=== PATIENT | male | born 1965 | race Caucasian/White ===

== ENCOUNTER 2020-07-13 11:02 | Outpatient (REF) | payer OTHER, SELFPAY ==
[2020-07-13 11:06] LABS: MANUAL DIFF FLAG NO
[2020-07-13 11:21] LABS: Basophils Percent Auto 0.4 % (0-2); Eosinophils Absolute Auto 0.1 X10*3/uL (0.0-0.4); Eosinophils Percent Auto 1.6 % (0-4); Hematocrit 41.6 % (42-52); Hemoglobin 14.2 g/dl (14.0-18.0); Imm Gran Abs Auto 0.02 X10*3/uL (0.00-0.03); Imm Gran Pct Auto 0.4 % (0.0-0.4); Lymphocytes Absolute Auto 1.6 X10*3/uL (1.2-4.9); Lymphocytes Percent Auto 31.8 % (20-40); Mean Corpuscular HGB Conc 34.1 g/dl (31.0-36.0); Mean Corpuscular Hemoglobin 31.3 pg (27.0-33.0); Mean Corpuscular Volume 91.8 fL (80-98); Mean Platelet Volume 9.7 fL (9.4-12.4); Monocytes Absolute Auto 0.5 X10*3/uL (0.1-1.2); Monocytes Percent Auto 9.9 % (2-11); Neutrophils Absolute Auto 2.7 X10*3/uL (2.0-8.3); Neutrophils Percent Auto 55.9 % (45-73); Platelet Count 292 X10*3/uL (160-400); Red Blood Count 4.53 X10*6/uL (4.60-5.80); Red Cell Distribution Width 12.5 % (11.0-16.0); White Blood Count 4.9 X10*3/uL (4.8-10.8)
[2020-07-13 11:37] LABS: Estimated Average Glucose 117 mg/dL; Hemoglobin A1c % 5.7 %
[2020-07-13 11:41] LABS: Glucose Urine UA NEG (NEG); Leukocyte Esterase Urine NEG (NEG); Nitrite Urine NEG (NEG); Specific Gravity - Urine 1.025 (1.005-1.025); Urine Blood NEG (NEG); Urine Ketones NEG (NEG); Urine Protein NEG (NEG-TRACE)
[2020-07-13 11:46] LABS: Appearance Urine CLEAR; Color Urine YELLOW
[2020-07-13 12:18] LABS: Alanine Aminotransferase 22 U/L (0-40); Albumin Level 4.4 g/dL (3.5-5.0); Alkaline Phosphatase 60 U/L (39-117); Anion Gap 14 (12-20); Aspartate Amino Transferase 18 U/L (5-37); Bilirubin Total 0.6 mg/dL (0.0-1.0); Blood Urea Nitrogen 14 mg/dL (9-16); Calcium 9.3 mg/dL (8.4-10.2); Carbon Dioxide 20 mmol/L (22-29); Chloride 107 mmol/L (96-108); Cholesterol 225 mg/dL; Estimated Glomerular Filt Rate > 60; Glucose Fasting 118 mg/dL (60-99); HDL Cholesterol 36 mg/dL; LDL Cholesterol Calculated 157 mg/dl; Potassium 4.4 mmol/L (3.3-5.1); Sodium 137 mmol/L (135-145); Total Protein 7.2 g/dL (6.5-8.0); Triglycerides 162 mg/dL
[2020-07-13 12:21] LABS: Creatinine Urine 167.08 mg/dL; Microalbum/Creatinine Ratio Ur 5.9 ug/mg cr
[2020-07-13 12:27] LABS: Reflex LDLD? No
[2020-07-13 12:38] LABS: PSA,Total (Free>4and<10) 1.26 ng/mL (0.00-4.00)
== END 2020-07-13 11:03 | disposition home or self-care (01) ==
LOC: HO.LNP 11:02
PROVIDERS: Visit Provider Internal Medicine
DX: Z00.00 Encounter for general adult medical examination without abnormal findings (principal); Z12.5 Encounter for screening for malignant neoplasm of prostate; R73.03 Prediabetes; E78.00 Pure hypercholesterolemia, unspecified
CPT/HCPCS: 80053; 80061; 81003; 82043; 83036; 84153; 85025

== ENCOUNTER 2021-02-28 10:20 | Outpatient (REF) | payer OTHER, SELFPAY ==
[2021-02-28 11:32] LABS: Alanine Aminotransferase 32 U/L (0-40); Albumin Level 4.5 g/dL (3.5-5.0); Alkaline Phosphatase 70 U/L (39-117); Aspartate Amino Transferase 19 U/L (5-37); Bilirubin Direct 0.2 mg/dL (0.0-0.5); Bilirubin Total 0.6 mg/dL (0.0-1.0); Cholesterol 255 mg/dL; Glucose Fasting 97 mg/dL (60-99); HDL Cholesterol 38 mg/dL; LDL Cholesterol Calculated 174 mg/dl; Total Protein 7.6 g/dL (6.5-8.0); Triglycerides 219 mg/dL
[2021-02-28 11:38] LABS: Estimated Average Glucose 117 mg/dL; Hemoglobin A1C 150.7695 umol/L; Hemoglobin A1c % 5.7 %
[2021-02-28 11:57] LABS: Reflex LDLD? No
== END 2021-02-28 10:21 | disposition home or self-care (01) ==
LOC: HO.LNP 10:20
PROVIDERS: Visit Provider Internal Medicine
DX: E78.00 Pure hypercholesterolemia, unspecified (principal); R73.09 Other abnormal glucose
CPT/HCPCS: 80061; 80076; 82947; 83036

== ENCOUNTER 2021-07-18 10:53 | Outpatient (REF) | payer OTHER, SELFPAY ==
[2021-07-18 10:57] LABS: MANUAL DIFF FLAG NO
[2021-07-18 11:04] LABS: Basophils Percent Auto 0.4 % (0-2); Eosinophils Absolute Auto 0.1 X10*3/uL (0.0-0.4); Eosinophils Percent Auto 1.4 % (0-4); Hemoglobin 13.8 g/dl (14.0-18.0); Imm Gran Abs Auto 0.02 X10*3/uL (0.00-0.03); Imm Gran Pct Auto 0.4 % (0.0-0.4); Lymphocytes Absolute Auto 1.7 X10*3/uL (1.2-4.9); Mean Corpuscular HGB Conc 34.5 g/dl (31.0-36.0); Mean Corpuscular Hemoglobin 31.6 pg (27.0-33.0); Mean Corpuscular Volume 91.5 fL (80.0-98.0); Mean Platelet Volume 9.4 fL (9.4-12.4); Monocytes Absolute Auto 0.6 X10*3/uL (0.1-1.2); Monocytes Percent Auto 10.4 % (2-11); Neutrophils Absolute Auto 3.2 x10*3/uL (2.0-8.3); Neutrophils Percent Auto 57.4 % (45-73); Platelet Count 302 X10*3/uL (160-400); Red Blood Count 4.37 X10*6/uL (4.60-5.80); Red Cell Distribution Width 12.7 % (11.0-16.0); White Blood Count 5.6 X10*3/uL (4.8-10.8)
[2021-07-18 11:12] LABS: Alanine Aminotransferase 30 U/L (0-40); Albumin Level 4.3 g/dL (3.5-5.0); Alkaline Phosphatase 70 U/L (39-117); Anion Gap 12 (12-20); Aspartate Amino Transferase 23 U/L (5-37); Bilirubin Total 0.7 mg/dL (0.0-1.0); Blood Urea Nitrogen 13 mg/dL (9-16); Calcium 9.4 mg/dL (8.4-10.2); Carbon Dioxide 24 mmol/L (22-29); Chloride 104 mmol/L (96-108); Cholesterol 220 mg/dL; Estimated Glomerular Filt Rate > 60; Glucose Fasting 112 mg/dL (60-99); HDL Cholesterol 40 mg/dL; LDL Cholesterol Calculated 168 mg/dl; Potassium 4.2 mmol/L (3.3-5.1); Sodium 136 mmol/L (135-145); Total Protein 7.1 g/dL (6.5-8.0); Triglycerides 64 mg/dL
[2021-07-18 11:22] LABS: Appearance Urine CLEAR; Color Urine YELLOW; Glucose Urine UA NEG (NEG); Leukocyte Esterase Urine NEG (NEG); Nitrite Urine NEG (NEG); Specific Gravity - Urine 1.025 (1.005-1.025); Urine Blood NEG (NEG); Urine Ketones NEG (NEG); Urine Protein NEG (NEG-TRACE)
[2021-07-18 11:28] LABS: Estimated Average Glucose 117 mg/dL; Hemoglobin A1c % 5.7 %
[2021-07-18 11:32] LABS: PSA,Total (Free>4and<10) 0.94 ng/mL (0.00-4.00)
[2021-07-18 11:41] LABS: Creatinine Urine 243.75 mg/dL; Microalbum/Creatinine Ratio Ur 5.3 ug/mg cr
[2021-07-18 12:16] LABS: RBC Urine 0 /HPF (0); WBC Urine 0 /HPF (0-4)
== END 2021-07-18 10:54 | disposition home or self-care (01) ==
LOC: HO.LNP 10:53
PROVIDERS: PCP Internal Medicine; Visit Provider Internal Medicine
DX: Z00.00 Encounter for general adult medical examination without abnormal findings (principal); Z12.5 Encounter for screening for malignant neoplasm of prostate; R73.03 Prediabetes; E78.00 Pure hypercholesterolemia, unspecified
CPT/HCPCS: 80053; 80061; 81001; 82043; 83036; 84153; 85025

== ENCOUNTER 2022-01-24 11:00 | Outpatient (REF) | payer OTHER, SELFPAY ==
[2022-01-24 11:49] LABS: Alanine Aminotransferase 32 U/L (0-40); Albumin Level 4.3 g/dL (3.5-5.0); Alkaline Phosphatase 56 U/L (39-117); Aspartate Amino Transferase 21 U/L (5-37); Bilirubin Direct < 0.2 mg/dL (0.0-0.5); Cholesterol 226 mg/dL; Glucose Fasting 107 mg/dL (60-99); HDL Cholesterol 44 mg/dL; LDL Cholesterol Calculated 163 mg/dl; Total Protein 6.8 g/dL (6.5-8.0); Triglycerides 98 mg/dL
[2022-01-24 12:11] LABS: Bilirubin Total 0.4 mg/dL (0.0-1.0)
[2022-01-24 12:23] LABS: Estimated Average Glucose 123 mg/dL; Hemoglobin A1c % 5.9 %
[2022-01-24 14:56] LABS: Reflex LDLD? No
== END 2022-01-24 11:01 | disposition home or self-care (01) ==
LOC: HO.LNP 11:00
PROVIDERS: Visit Provider Internal Medicine
DX: R73.09 Other abnormal glucose (principal); E78.00 Pure hypercholesterolemia, unspecified
CPT/HCPCS: 80061; 80076; 82947; 83036

== ENCOUNTER → 2022-05-21 14:53 | Outpatient (BNVA) | payer OTHER, SELFPAY | PROVIDERS: PCP Internal Medicine; Referring Provider Internal Medicine; Visit Provider Internal Medicine Cardiovascular Disease | DX: I25.10 Atherosclerotic heart disease of native coronary artery without angina pectoris (principal) | CPT/HCPCS: 93005 ==

== ENCOUNTER 2022-06-06 08:40 | Outpatient (REF) | payer OTHER, SELFPAY ==
--- NOTE | 2022-06-06 08:43 | CA_ITS ---
Transthoracic Echocardiogram Patient (Last, First, Middle): Spencer Vargas, Gender: Male Date of : 1965 Age: 56 Procedure Date: 06/06/2022 Procedure Type: Transthoracic Echocardiogram Location: OP Height: 182.88 cm Weight: 86.18 kg BSA: 2.08 m2 Heart Rate: bpm BP: 138 / 82 mmHg Editor Dictionary: TO Referring MD: Hussain Newell MD Symptoms: I25.10 - Atherosclerotic heart disease of [place] coronary artery without... Study Quality: Fair ECG Rhythm: Sinus Conclusions: - The left ventricular systolic function is normal. The calculated ejection fraction is 59% by biplane method. - Mildly increased right ventricular cavity size. - The left atrium is mildly dilated. - There is mild calcification of the aortic valve. - There is mild dilatation of the ascending aorta measuring 3.90 cm. Findings Left Ventricle Normal left ventricular cavity size. The left ventricular systolic function is normal. The calculated ejection fraction is 59% by biplane method. There is no evidence of regional wall motion abnormalities. Diastolic function is normal for age. There is mild septal asymmetric hypertrophy. LV peak GLS 18.2%. Right Ventricle Mildly increased right ventricular cavity size. There is normal right ventricular systolic function. Atria The left atrium is mildly dilated. The right atrium is normal in size. Aortic Valve There is a normal trileaflet aortic valve. There is mild calcification of the aortic valve. There is no aortic valve stenosis. There is no aortic valve regurgitation. Mitral Valve The mitral valve appears normal. There is trace mitral valve regurgitation. There is no mitral valve stenosis. Pulmonic Valve The pulmonic valve is likely normal. There is trace pulmonic valve regurgitation. Tricuspid Valve There is trace tricuspid valve regurgitation. There is no evidence of pulmonary hypertension. Great Vessels There is mild dilatation of the ascending aorta measuring 3.90 cm. Venous The inferior vena cava is normal in size and collapses greater than 50% with inspiration. Pericardium/Pleural Prominent epicardial adipose tissue noted. There is no evidence of pericardial effusion. Prior Study Comparison No prior study available for comparison. Measurements 2D Linear Measurements IVSd: 1.15 0.6-0.9/0.6-1.0 cm LVIDd: 4.93 3.9-5.3/4.2-5.9 cm LVIDd Index: 2.37 2.4-3.2/2.2-3.1 cm/m2 LVIDs: 3.24 2.0-3.6 cm LVPWd: 0.88 0.7-1.1 cm LA Diam: 3.70 2.7-3.8/3.0-4.0 cm LAIDs Index: 1.78 1.5-2.3 cm/m2 LV Mass: 225.87 67-162/88-224 g LV Mass Index: 108.59 43-95/49-115 g/m2 LVOT Diam: 2.30 3.0+(-)1.3 cm 2D Systolic Function EF 4C: 59.30 >55% EF 2C: 57.10 >55% EF BiP: 59.00 >55% Mitral Valve MV Pk E: 0.78 MV PK A: 0.47 MV Decel Time: 278.00 E/A: 1.70 E'Lateral: 11.10 E'Medial: 7.83 E/E' Med: 10.00 E/E' Lat: 7.00 PHT: 82.00 MVA PHT: 2.68 Decel [place]: 2.80 Aortic Valve AoV Pk Samuel: 1.34 AoV Mn Samuel: 0.93 AoV VTI: 0.34 AoV Pk Grad: 7.00 Aov Mn Grad: 4.00 CEASAR Cont.VTI: 2.33 LVOT LVOT Pk Samuel: 0.84 LVOT Mn Samuel: 0.55 LVOT VTI: 0.19 LVOT Pk Grad: 3.00 LVOT Mn Grad: 1.00 LVOT Diam: 2.30 LVOT Area: 4.15 Diastolic Function MV Pk E: 0.78 MV Pk A: 0.47 E/A: 1.70 E'Medial: 7.83 E/E' Med: 10.00 E' Laterial: 11.10 E/E' Lat: 7.00 Right Ventricle TAPSE (mm): 26.70 TVS' Samuel: 13.70 Tricuspid Valve TR Pk Samuel: 2.14 TR Pk Grad: 18.00 RA Press: 3.00 Great Vessels Aorta Sinus of Valsalva: 3.51 2.0-3.5 cm Ao Asc: 3.90 2.1-3.4 cm Updated in Other Vendor System with Status of Final Dami Herrera MD electronically signed on 06/08/2022 1:43:57 PM with status of Final
== END 2023-01-15 17:00 | disposition home or self-care (01) ==
LOC: HO.CARD 08:40
PROVIDERS: PCP Internal Medicine; Visit Provider Internal Medicine Cardiovascular Disease
DX: I25.10 Atherosclerotic heart disease of native coronary artery without angina pectoris (principal); Z82.49 Family history of ischemic heart disease and other diseases of the circulatory system
CPT/HCPCS: 93306; 93356

== ENCOUNTER → 2022-06-13 10:42 | Outpatient (REF) | payer OTHER, SELFPAY ==
--- NOTE | 2022-06-13 10:46 | CA_ITS ---
Acquisition Time: 2022-06-13 10:57:03 Total Exercise Time: 00:09:31 Test Indications: CAD, ELEV.CALCIUM SCORE Medications: SEE MED SHEET Protocol: RASHID Max HR: 162 BPM 99% of Pred: 163 BPM Max BP: 136/074 mmHG Max Work Load: 10.9 METS Exercise stress test exrcise 9 min 31 sec of Rashid protocol achiving 99% MPHR, without anginal symptoms, without arrythmia, with normotensive response to exercise, without EKG changes. Echo images obtained by tech at rest and immediately post peak exercise. Definity contrast used. Test reviewed with Dr. Ramesh. Referred By: Hussain Newell Overread By: TAB GUALLPA
== END ==
LOC: HO.CARD 10:42
PROVIDERS: PCP Internal Medicine; Visit Provider Internal Medicine Cardiovascular Disease
DX: I25.10 Atherosclerotic heart disease of native coronary artery without angina pectoris (principal)
CPT/HCPCS: 93350; Q9957

== ENCOUNTER → 2022-07-07 15:45 | Outpatient (BNVA) | payer OTHER, SELFPAY | PROVIDERS: PCP Internal Medicine; Visit Provider Nurse Practitioner Family ==

== ENCOUNTER 2022-09-11 11:18 | Outpatient (REF) | payer OTHER, SELFPAY ==
[2022-09-11 11:23] LABS: MANUAL DIFF FLAG NO
[2022-09-11 13:30] LABS: Basophils Percent Auto 0.7 % (0-2); Eosinophils Absolute Auto 0.1 X10*3/uL (0.0-0.4); Eosinophils Percent Auto 1.9 % (0-4); Estimated Average Glucose 111 mg/dL; Hematocrit 44.1 % (42.0-52.0); Hemoglobin 14.7 g/dl (14.0-18.0); Hemoglobin A1c % 5.5 %; Imm Gran Abs Auto 0.02 X10*3/uL (0.00-0.03); Imm Gran Pct Auto 0.3 % (0.0-0.4); Lymphocytes Absolute Auto 1.8 X10*3/uL (1.2-4.9); Lymphocytes Percent Auto 30.3 % (20-40); Mean Corpuscular HGB Conc 33.3 g/dl (31.0-36.0); Mean Corpuscular Hemoglobin 31.1 pg (27.0-33.0); Mean Corpuscular Volume 93.4 fL (80.0-98.0); Mean Platelet Volume 10.2 fL (9.4-12.4); Monocytes Absolute Auto 0.6 X10*3/uL (0.1-1.2); Monocytes Percent Auto 10.7 % (2-11); Neutrophils Absolute Auto 3.3 x10*3/uL (2.0-8.3); Neutrophils Percent Auto 56.1 % (45-73); Platelet Count 242 X10*3/uL (160-400); Red Blood Count 4.72 X10*6/uL (4.60-5.80); Red Cell Distribution Width 12.9 % (11.0-16.0); White Blood Count 5.9 X10*3/uL (4.8-10.8)
[2022-09-11 13:33] LABS: Appearance Urine Clear; Color Urine Yellow; Glucose Urine UA Negative (Negative); Leukocyte Esterase Urine Negative (Negative); Nitrite Urine Negative (Negative); PH 5.5 (5.0-9.0); Specific Gravity - Urine >= 1.030 (1.005-1.025); Urine Blood Negative (Negative); Urine Ketones Negative (Negative); Urine Protein Negative (Neg-Trace)
[2022-09-11 13:37] LABS: Bacteria Urine None Seen (None Seen); RBC Urine 0-2 /HPF (0-2); Squamous Epithelial Cell Urine 0-2 /HPF (0-2); WBC Urine 0-5 /HPF (0-5)
[2022-09-11 13:38] LABS: Alanine Aminotransferase 52 U/L (0-40); Albumin Level 4.4 g/dL (3.5-5.0); Alkaline Phosphatase 55 U/L (39-117); Anion Gap 15 (12-20); Aspartate Amino Transferase 32 U/L (5-37); Bilirubin Total 0.4 mg/dL (0.0-1.0); Blood Urea Nitrogen 14 mg/dL (9-16); Calcium 9.3 mg/dL (8.4-10.2); Carbon Dioxide 20 mmol/L (22-29); Chloride 106 mmol/L (96-108); Cholesterol 165 mg/dL; Estimated Glomerular Filt Rate > 60; Glucose Fasting 98 mg/dL (60-99); HDL Cholesterol 46 mg/dL; LDL Cholesterol Calculated 98 mg/dl; Potassium 4.4 mmol/L (3.3-5.1); Sodium 137 mmol/L (135-145); Total Protein 7.4 g/dL (6.5-8.0); Triglycerides 106 mg/dL
[2022-09-11 14:42] LABS: Creatinine Urine 219.83 mg/dL; Microalbum/Creatinine Ratio Ur 6.3 ug/mg cr
== END 2022-09-11 11:19 | disposition home or self-care (01) ==
LOC: HO.LNP 11:18
PROVIDERS: Visit Provider Internal Medicine
DX: Z00.00 Encounter for general adult medical examination without abnormal findings (principal); R73.09 Other abnormal glucose; E78.00 Pure hypercholesterolemia, unspecified; Z12.5 Encounter for screening for malignant neoplasm of prostate
CPT/HCPCS: 80053; 80061; 81001; 82043; 83036; 84153; 85025

== ENCOUNTER 2023-01-12 15:04 | Outpatient (AMB) | payer OTHER, SELFPAY ==
--- NOTE | 2023-01-12 15:07 | MHC.OFFVIS ---
Intake Vital Signs 01/12/23 15:10 Height 6 ft Weight 200 lb 9.93 oz BMI 27.2 BP 120/74 Blood Pressure Location Lt brachial Position Sitting Pulse 60 Pulse Source Pulse Oximeter Intake Visit Reasons: 6 month follow up Intake Note: 6 month follow up feels good Restaurant Attendant Required: No Allergies No Known Allergies [No Known Allergies*] Allergy (Verified 01/12/23 15:13) Medication List - Last Reconciled 01/12/23 by Hussain Newell MD aspirin 81 mg PO DAILY rosuvastatin 40 mg PO DAILY HPI HPI Comments History of Present Illness Details Spencer comes for follow-up. Denies any exertional symptoms. Denies any exertional chest pain or shortness of breath. Remains very active. Denies any unusual lightheadedness, syncope. No heart failure symptoms. Takes all his medications. His last LDL has improved but not optimized at 98 mg/dL. He had 1 episode of prolonged burning chest discomfort retrosternally after Thanksgiving meal. He did take Tums which improved to symptoms and subsequently took Prilosec. He has not had any exertional chest burning. [facility] Medical History (Updated 01/12/23 @ 15:15 by Marcy Garcia MA) CAD (coronary artery disease) Surgical History (Updated 01/12/23 @ 15:15 by Marcy Garcia MA) History of Mohs micrographic surgery for skin cancer History of surgery on arm Family History Father No problems noted. Mother No problems noted. Alcohol intake: current Alcohol intake frequency: holidays/special occasions only Patient Tobacco Use Status: Never used Tobacco Review of Systems Const Denies chills, Denies fatigue, Denies fever(s), Denies frequent falls, Denies weakness, Denies weight gain and Denies weight loss ENT Denies dizziness Card Denies chest pain, Denies leg edema, Denies lightheadedness, Denies palpitations, Denies dyspnea, Denies dyspnea on exertion, Denies orthopnea and Denies other (loss of consciousness) Resp Denies cough, Denies dyspnea and Denies dyspnea on exertion GI Denies hematochezia and Denies change in stool character Musc Denies abnormal gait, Denies muscle weakness, Denies numbness, Denies radiating pain into limb and Denies tingling Neuro Denies abnormal gait, Denies dizziness, Denies frequent falls, Denies numbness, Denies tingling and Denies weakness Endo Denies fatigue and Denies palpitations Physical Exam Vital Signs: Last Vital Signs Pulse 60 01/12/23 15:10 BP 120/74 01/12/23 15:10 BMI result Body Mass Index 27.2 Const General: cooperative, healthy appearing, comfortable and no acute distress Orientation/consciousness: patient oriented x3 Neck Neck: Yes normal visual inspection and Yes no JVD Resp Effort & Inspection: normal respiratory effort Auscultation: clear to auscultation bilaterally, no crackles, no rales, no rhonchi and no wheezes Cardio Jugular venous distension: no JVD Rate: regular rate Rhythm: regular rhythm Heart sounds: S1 normal heart sound present, S2 normal heart sound present, no gallops, no murmurs and no rubs GI Inspection: Yes normal to inspection Neuro General: patient oriented x3 Extrem General: Yes normal to inspection, No no pedal edema and No calf tenderness Psych Appearance: grossly normal Mental Status: mental status grossly normal Speech and movement: Normal speech and movement present Office Procedures EKG Details: EKG today shows sinus bradycardia with normal EKG, unchanged from before [id number], Complete Assessment & Plan Assessment & Plan (1) CAD (coronary artery disease): Comment: calcium score greater than 1000, predominantly in the LAD and RCA territory Code(s): I25.10 - Atherosclerotic heart disease of [place] coronary artery without angina pectoris Plan: Patient with marked coronary calcification with calcium score greater than 1000 suggestive underlying diffuse atherosclerotic disease. Last stress echocardiogram was within normal limits at good workload. He is participating in good physical activity and has no anginal symptoms. We discussed about exercise program and exercise restrictions overall. He understands agrees. Advised to maintain good activity level but gradually build up his exercise tolerance. Continue low-dose aspirin therapy. His LDL is currently not well optimized and is advised to add ezetimibe 10 mg to his regimen with follow-up lipid panel in 3 months time. Pathophysiology of atherosclerosis was discussed in details. Blood pressure is currently well optimized. Follow-up exercise myocardial perfusion imaging in 6 months time to rule out evidence of silent myocardial ischemia (2) Mild ascending aorta dilatation: Code(s): I77.810 - Thoracic aortic ectasia Plan: Thoracic aortic aneurysm at 3.9 cm. Most likely cause is atherosclerotic. Discussed with him about management. Avoid sudden strenuous isometric exercise. Follow-up echocardiogram in 6 months time. Continue aggressive vascular risk factor modifications above. Will follow up in the clinic in 6 months time, sooner p.r.n.. Thank you for allowing me to partake in his care Orders: Orders CA echo transthoracic complete 6 Months I77.810 - Thoracic aortic ectasia Lipid Panel 3 Months I25.10 - Atherosclerotic heart disease of [place] coronary artery without angina pectoris CA stress test 6 Months I25.10 - Atherosclerotic heart disease of [place] coronary artery without angina pectoris NM cardiolite stress test 2 Weeks I25.10 - Atherosclerotic heart disease of [place] coronary artery without angina pectoris, R07.9 - Chest pain, unspecified Medications: New ezetimibe 10 mg PO DAILY 30 tabs 5RF I25.10 - Atherosclerotic heart disease of [place] coronary artery without angina pectoris Coding Level of Care Code Est Pt Level 4 (09433) Diagnoses CAD (coronary artery disease) I25.10 Mild ascending aorta dilatation I77.810 CPT Codes EKG - CPT: 71550-[id number], Complete ([id number])
[2023-01-12 15:10] VITALS: BP 120/74; PULSE 60; BMI 27.2
== END 2023-01-12 15:48 | disposition home or self-care (01) ==
PROVIDERS: Visit Provider Internal Medicine Cardiovascular Disease
DX: I25.10 Atherosclerotic heart disease of native coronary artery without angina pectoris (principal); I77.810 Thoracic aortic ectasia
CPT/HCPCS: 93010; 99214

== ENCOUNTER → 2023-01-12 15:04 | Outpatient (BNVA) | payer OTHER, SELFPAY | PROVIDERS: Visit Provider Internal Medicine Cardiovascular Disease | DX: I25.10 Atherosclerotic heart disease of native coronary artery without angina pectoris (principal); I77.810 Thoracic aortic ectasia | CPT/HCPCS: 93005 ==

== ENCOUNTER 2023-03-20 10:56 | Outpatient (REF) | payer OTHER, SELFPAY ==
[2023-03-20 11:23] LABS: Estimated Average Glucose 120 mg/dL; Hemoglobin A1c % 5.8 % (<6.0)
[2023-03-20 11:29] LABS: Alanine Aminotransferase 62 U/L (0-40); Albumin Level 4.3 g/dL (3.5-5.0); Alkaline Phosphatase 47 U/L (39-117); Aspartate Amino Transferase 36 U/L (5-37); Bilirubin Direct 0.2 mg/dL (0.0-0.5); Bilirubin Total 0.5 mg/dL (0.0-1.0); Cholesterol 120 mg/dL (<200); Glucose Fasting 104 mg/dL (60-99); HDL Cholesterol 44 mg/dL (>40); LDL Cholesterol Calculated 62 mg/dL (<100); Total Protein 7.1 g/dL (6.5-8.0); Triglycerides 74 mg/dL (<150)
[2023-03-20 12:52] LABS: Reflex LDLD? No
== END 2023-03-20 10:57 | disposition home or self-care (01) ==
LOC: HO.LNP 10:56
PROVIDERS: Visit Provider Internal Medicine
DX: R73.9 Hyperglycemia, unspecified (principal); E78.00 Pure hypercholesterolemia, unspecified
CPT/HCPCS: 80061; 80076; 82947; 83036

== ENCOUNTER 2023-09-18 11:24 | Outpatient (REF) | payer OTHER, SELFPAY ==
[2023-09-18 11:27] LABS: MANUAL DIFF FLAG NO
[2023-09-18 11:47] LABS: Basophils Percent Auto 0.5 % (0-2); Eosinophils Absolute Auto 0.1 X10*3/uL (0.0-0.4); Eosinophils Percent Auto 1.7 % (0-4); Hemoglobin 14.4 g/dl (14.0-18.0); Imm Gran Abs Auto 0.02 X10*3/uL (0.00-0.03); Imm Gran Pct Auto 0.3 % (0.0-0.4); Lymphocytes Absolute Auto 1.8 X10*3/uL (1.2-4.9); Lymphocytes Percent Auto 29.6 % (20-40); Mean Corpuscular HGB Conc 34.3 g/dl (31.0-36.0); Mean Corpuscular Hemoglobin 31.4 pg (27.0-33.0); Mean Corpuscular Volume 91.7 fL (80.0-98.0); Mean Platelet Volume 9.7 fL (9.4-12.4); Monocytes Absolute Auto 0.7 X10*3/uL (0.1-1.2); Monocytes Percent Auto 11.1 % (2-11); Neutrophils Absolute Auto 3.4 x10*3/uL (2.0-8.3); Neutrophils Percent Auto 56.8 % (45-73); Platelet Count 260 X10*3/uL (160-400); Red Blood Count 4.58 X10*6/uL (4.60-5.80); Red Cell Distribution Width 12.9 % (11.0-16.0)
[2023-09-18 11:49] LABS: Appearance Urine Clear; Color Urine Yellow; Glucose Urine UA Negative (Negative); Leukocyte Esterase Urine Negative (Negative); Nitrite Urine Negative (Negative); PH 5.5 (5.0-9.0); Specific Gravity - Urine 1.025 (1.005-1.025); Urine Blood Negative (Negative); Urine Ketones Negative (Negative); Urine Protein Negative (Neg-Trace)
[2023-09-18 11:52] LABS: Bacteria Urine None Seen (None Seen); Hyaline Casts Urine 0-2 /LPF (0-2); RBC Urine 0-2 /HPF (0-2); Squamous Epithelial Cell Urine 0-2 /HPF (0-2); WBC Urine 0-5 /HPF (0-5)
[2023-09-18 12:13] LABS: Alanine Aminotransferase 59 U/L (0-40); Albumin Level 4.4 g/dL (3.5-5.0); Alkaline Phosphatase 46 U/L (39-117); Anion Gap 12 (12-20); Aspartate Amino Transferase 29 U/L (5-37); Bilirubin Total 0.5 mg/dL (0.0-1.0); Blood Urea Nitrogen 16 mg/dL (9-16); Calcium 9.2 mg/dL (8.4-10.2); Carbon Dioxide 25 mmol/L (22-29); Chloride 105 mmol/L (96-108); Cholesterol 130 mg/dL (<200); Estimated Glomerular Filt Rate > 60; Glucose Fasting 101 mg/dL (60-99); HDL Cholesterol 45 mg/dL (>40); LDL Cholesterol Calculated 69 mg/dL (<100); Potassium 4.1 mmol/L (3.3-5.1); Sodium 138 mmol/L (135-145); Total Protein 7.1 g/dL (6.5-8.0); Triglycerides 81 mg/dL (<150)
[2023-09-18 12:22] LABS: Creatinine Urine 162.34 mg/dL; Microalbum/Creatinine Ratio Ur 8.6 ug/mg cr (<30)
[2023-09-18 12:35] LABS: PSA,Total (Free>4and<10) 1.18 ng/mL (0.00-4.00)
[2023-09-18 12:44] LABS: Estimated Average Glucose 120 mg/dL; Hemoglobin A1c % 5.8 % (<6.0)
== END 2023-09-18 11:25 | disposition home or self-care (01) ==
LOC: HO.LNP 11:24
PROVIDERS: Visit Provider Internal Medicine
DX: R73.09 Other abnormal glucose (principal); E78.00 Pure hypercholesterolemia, unspecified; Z12.5 Encounter for screening for malignant neoplasm of prostate
CPT/HCPCS: 80053; 80061; 81001; 82043; 82570; 83036; 84153; 85025

== ENCOUNTER 2024-04-01 07:00 | Outpatient (REF) | payer OTHER, SELFPAY ==
--- OUTSIDE RECORDS SUMMARY | 2024-04-01 11:12 | XMS_ITS | Clinical Summary ---
Author Organization [facility] Address [address] [place] [address] Care Team Providers Care Implementation Project Coordinator Name Role Phone Unavailable Primary Care Provider Unavailabl e Social History Tobacco Use Types Packs/Day Years Used Date Smoking Tobacco: Never Assessed Sex and Gender Information Value Date Recorded Sex Assigned at Not on file Legal Sex Male 11:04 AM EDT Gender Identity Not on file Sexual Orientation Not on file Plan of Treatment Health Maintenance Due Date Last Done Comments DTaP,Tdap,and Td Vaccines (1 - Tdap) 07/19/1983 Hepatitis B Vaccines (1 of 3 - 19+ 3-dose series) 07/19/1983 Zoster Vaccines (1 of 2) 2014 Cholesterol Screening (Lipid Panel) 09/18/2023 Colorectal Cancer Screening: Colonoscopy 09/18/2023 Depression Screening 09/18/2023 HIV Screening 09/18/2023 Hepatitis C Screening 09/18/2023 Social Influencers of Health Screening 09/18/2023 COVID-19 Vaccine ( - 2023-2 5 season) 2023 Influenza Vaccine (#1) 2023 RSV Immunization Patients 60 + Years Old (1 - 1-dose 75+ series) 07/19/2039 HIB Vaccines Aged Out No longer eligi ble based on patient's age to complete this topic HPV Vaccines Aged Out No longer eligi ble based on patient's age to complete this topic Hepatitis A Vaccines Aged Out No long er eligible based on patient's age to complete this topic IPV Vaccines Aged Out No longer eligi ble based on patient's age to complete this topic MMR Vaccines Aged Out No longer eligi ble based on patient's age to complete this topic Meningococcal ACWY Vaccine Aged Out N o longer eligible based on patient's age to complete this topic Pneumococcal Vaccine: Pediat rics (0 to 5 Years) and At-Risk Patients (6 to 64 Years) Aged Out No longer eligible b ased on patient's age to complete this topic RSV Immunization Patients Un mikala 20 months Aged Out No longer eligible b ased on patient's age to complete this topic Varicella Vaccines Aged Out No longer eligible based on patient's age to complete this topic
[2024-04-01 11:31] LABS: Alanine Aminotransferase 87 U/L (0-40); Albumin Level 4.3 g/dL (3.5-5.0); Alkaline Phosphatase 46 U/L (39-117); Aspartate Amino Transferase 45 U/L (5-37); Bilirubin Direct 0.3 mg/dL (0.0-0.5); Bilirubin Total 0.7 mg/dL (0.0-1.0); Cholesterol 131 mg/dL (<200); HDL Cholesterol 44 mg/dL (>40); LDL Cholesterol Calculated 68 mg/dL (<100); Total Protein 7.4 g/dL (6.5-8.0); Triglycerides 97 mg/dL (<150)
== END 2024-04-01 07:01 | disposition home or self-care (01) ==
LOC: HO.LNP 07:00
PROVIDERS: Visit Provider Internal Medicine
DX: R73.03 Prediabetes (principal); Z13.6 Encounter for screening for cardiovascular disorders
CPT/HCPCS: 80061; 80076

== ENCOUNTER 2024-09-29 10:54 | Outpatient (REF) | payer OTHER, SELFPAY ==
[2024-09-29 10:59] LABS: MANUAL DIFF FLAG NO
[2024-09-29 11:19] LABS: Hematocrit 41.3 % (42.0-52.0); Hemoglobin 14.3 g/dl (14.0-18.0); Imm Gran Abs Auto 0.02 X10*3/uL (0.00-0.03); Imm Gran Pct Auto 0.3 % (0.0-0.4); Lymphocytes Absolute Auto 1.9 X10*3/uL (1.2-4.9); Mean Corpuscular HGB Conc 34.6 g/dl (31.0-36.0); Mean Corpuscular Hemoglobin 31.1 pg (27.0-33.0); Mean Corpuscular Volume 89.8 fL (80.0-98.0); NRBC Abs Auto 0.000 X10*3/uL (0.0-0.012); NRBC Pct Auto 0.0 /100WBC (0.0-0.2); Platelet Count 274 X10*3/uL (160-400); Red Blood Count 4.60 X10*6/uL (4.60-5.80); White Blood Count 6.2 X10*3/uL (4.8-10.8)
[2024-09-29 11:20] LABS: Appearance Urine Clear; Glucose Urine UA Negative (Negative); PH 6.0 (5.0-9.0); Specific Gravity - Urine 1.020 (1.005-1.025)
[2024-09-29 11:31] LABS: Hemoglobin A1C 158.5741 umol/L; Total Hemoglobin (HGBA1C) 3786.5238 umol/L
[2024-09-29 11:34] LABS: Alanine Aminotransferase 66 U/L (0-40); Albumin Level 4.6 g/dL (3.5-5.0); Alkaline Phosphatase 46 U/L (39-117); Anion Gap 11 (12-20); Aspartate Amino Transferase 44 U/L (5-37); Blood Urea Nitrogen 13 mg/dL (9-16); Calcium 9.2 mg/dL (8.4-10.2); Carbon Dioxide 26 mmol/L (22-29); Chloride 105 mmol/L (96-108); Cholesterol 142 mg/dL (<200); Estimated Glomerular Filt Rate > 60; HDL Cholesterol 44 mg/dL (>40); Potassium 4.1 mmol/L (3.3-5.1); Sodium 138 mmol/L (135-145); Total Protein 7.1 g/dL (6.5-8.0); Triglycerides 90 mg/dL (<150)
[2024-09-29 11:50] LABS: PSA,Total (Free>4and<10) 1.06 ng/mL (0.00-4.00)
--- OUTSIDE RECORDS SUMMARY | 2024-09-29 12:07 | XMS_ITS | Patient Health Record ---
Author Organization Brian Argueta MD Address [address] [place], [place] [id number] Care Team Providers Care Parts Assembler Name Role Phone Brian Argueta Primary Care Provider Allergies No Known Allergies Results Component Value Reference Range Notes Complete Blood Count Auto Di ff (Not yet reviewed by provider) Interpretation: Performing Lab:[facility], [address] [place] [phone] Notes/Report: White Blood Count 6.2 4.8-10.8 X10*3/uL Red Blood Count 4.60 4.60-5.80 X10*6/uL Hemoglobin 14.3 14.0-18.0 g/dl Hematocrit 41.3 42.0-52.0 % Mean Corpuscular Volume 89.8 80.0-98.0 fL Mean Corpuscular Hemoglobin 31.1 27.0-33.0 pg Mean Corpuscular HGB Conc 34.6 31.0-36.0 g/dl Red Cell Distribution Width 12.8 11.0-16.0 % Platelet Count 274 160-400 X10*3/uL Mean Platelet Volume 9.9 9.4-12.4 fL Neutrophils Percent Auto 57.4 45-73 % Imm Gran Pct Auto 0.3 0.0-0.4 % Lymphocytes Percent Auto 30.4 20-40 % Monocytes Percent Auto 10.3 2-11 % Eosinophils Percent Auto 1.0 0-4 % Basophils Percent Auto 0.6 0-2 % NRBC Pct Auto 0.0 0.0-0.2 /100WBC Neutrophils Absolute Auto 3.6 2.0-8.3 x10*3/u L Imm Gran Abs Auto 0.02 0.00-0.03 X10*3/uL Lymphocytes Absolute Auto 1.9 1.2-4.9 X10*3/u L Monocytes Absolute Auto 0.6 0.1-1.2 X10*3/uL Eosinophils Absolute Auto 0.1 0.0-0.4 X10*3/u L Basophils Absolute Auto 0.0 0.0-0.2 X10*3/uL NRBC Abs Auto 0.000 0.0-0.012 X10*3/uL Comprehensive [place]. Panel Fa st (Not yet reviewed by provider) Interpretation: Performing Lab:[facility], [address] [place] [phone] Notes/Report: Sodium 138 135-145 mmol/L Potassium 4.1 3.3-5.1 mmol/L Chloride 105 96-108 mmol/L Carbon Dioxide 26 22-29 mmol/L Anion Gap 11 12-20 Blood Urea Nitrogen 13 9-16 mg/dL Creatinine 0.72 0.5-1.4 mg/dL Estimated Glomerular Filt Rate > 60 Chronic Kidney Disease: Estimated GFR < 60 mL/min/1.73m2 Severe Kidney Disease: Estimated GFR < 15 mL/min/1.73m2 Glucose Fasting 106 60-99 mg/dL A fasting glucose from 100-125 mg/dl is considered impaired (pre-diabetes). Calcium 9.2 8.4-10.2 mg/dL Bilirubin Total 0.6 0.0-1.0 mg/dL Aspartate Amino Transferase 44 5-37 U/L Alanine Aminotransferase 66 0-40 U/L Total Protein 7.1 6.5-8.0 g/dL Albumin Level 4.6 3.5-5.0 g/dL Alkaline Phosphatase 46 39-117 U/L Lipid Panel (Not yet reviewe d by provider) Interpretation: Performing Lab:[facility], [address] [place] [phone] Notes/Report: Triglycerides 90 <150 mg/dL Desirable Triglyceride: less than 150 mg/dL Borderline High Triglyceride 150-199 mg/dL High Triglyceride: 200-499 mg/dL Very High Triglyceride: greater than or equal to 5OO mg/dL Cholesterol 142 <200 mg/dL Desirable Cholesterol: less than 200 mg/dL Borderline High Cholesterol: 200-239 mg/dL High Cholesterol: greater than 239 mg/dL LDL Cholesterol Calculated 80 <100 mg/dL Desirable LDL: less than 100 mg/dL Near Optimal/Above Optimal LDL: 110-129 mg/dL Borderline High LDL: 130-159 mg/dL High LDL: 160-189 mg/dL Very High LDL: greater than or equal to 190 mg/dL HDL Cholesterol 44 >40 mg/dL Desirable HDL: greater than 40 mg/dL Note: This HDL assay may give artificially low results in patients with liver disease. PSA,Total (Free>4and<10) (No t yet reviewed by provider) Interpretation: Performing Lab:[address] [phone] Notes/Report: PSA,Total (Free>4and<10) 1.06 0.00-4.00 ng/mL A Free PSA was not performed: The percentage of Free PSA can be used to enhance the differentiation of prostate cancer from benign prostatic disease in subjects whose PSA levels are between 4.0 and 10.0 ng/mL. For subjects whose PSA levels are below 4.0 or above 10.0 ng/mL, the risk of prostate cancer is determined on the basis of the PSA alone. Therefore the % Free PSA is recommended only for those subjects whose PSA levels are between 4.0 and 10.0 ng/mL. PSA methodology: Urias Alinity i Chemiluminescent Microparticle Immunoassay (CMIA) Hemoglobin A1c (Not yet revi ewed by provider) Interpretation: Performing Lab:[address] [phone] Notes/Report: Hemoglobin A1c % 6.0 <6.0 % Hemoglobin A1C Reference Range Adults: 4.8 - 6.0 % Non diabetic: < 6.0 % Goal: < 7.0 % Additional Action Suggested: > 8.0 % Note: Hemoglobin A1c results are invalid for patients with abnormal amounts of HbF. Blood transfusions may impact the HbA1c concentration in the patient sample. Estimated Average Glucose 126 eAG = Estimated average glucose which is %A1C expressed as average glucose, using the formula of the [id number] Average Glucose study (ADAG), Diabetes Care, Vol.31,#8, 2007 UA ClnCatch+Micro w/rflx Cul t (Not yet reviewed by provider) Interpretation: Performing Lab:[facility], [address] [place] [phone] Notes/Report: Urine, Clean Catch Color Urine Yellow Appearance Urine Clear PH 6.0 5.0-9.0 Glucose Urine UA Negative Negative mg/dL Urine Blood Negative Negative Specific [place] - Urine 1.020 1.005-1.025 Urine Protein Negative Neg-Trace mg/dL Urine Ketones Negative Negative mg/dL Nitrite Urine Negative Negative Leukocyte Esterase Urine Negative Negative RBC Urine 0-2 0-2 /HPF WBC Urine 0-5 0-5 /HPF Squamous Epithelial Cell Urine 0-2 0-2 /HPF Bacteria Urine None Seen None Seen Hyaline Casts Urine 0-2 0-2 /LPF Reason For Referral No Information Medications Medication SIG (Take, Route, Frequency, Duration) Notes Start Date End Date Status Aspir-Low 81 MG 1 tablet Orally Once a day for 30 days Active Rosuvastatin Calcium 40 MG TAKE 1 TABLET BY MOUTH EVERY DAY Active Immunizations Vaccine Route Administration Date Status Comme nts Flu Vaccine IM Intramuscular 12/02/2010 Administered Flu Vaccine IM Intramuscular 12/23/2011 Administered Flu Vaccine IM Intramuscular 01/03/2013 Administered Fluarix Quadrivalent IM Intramuscular 02/27/2014 Administe red Fluarix Quadrivalent IM Intramuscular 03/10/2017 Administe red Fluarix Quadrivalent IM Intramuscular 10/27/2017 Administe red Fluarix Quadrivalent IM Intramuscular 02/28/2019 Administe red Covid Vaccine Unknown 05/20/2020 Administered J&J Fluarix Quadrivalent IM Intramuscular 02/28/2021 Administe red Fluarix Quadrivalent IM Intramuscular 01/24/2022 Administe red Flu Vaccine Unknown 03/06/2015 Refused Fluarix Quadrivalent Unknown 04/10/2016 Refused TDaP Unknown 05/06/2018 Refused Flu Vaccine Unknown 02/27/2014 Pending Social History Tobacco Use: Social History Observation Description Date Details (start date - stop date) Never Smoker NA - NA Tobacco Use/Smoking Question Answer Notes Patient is a nonsmoker Additional Findings: Tobacco Non-User Cu rrent non-smoker, currently using no form of tobacco Alcohol Screen Question Answer Notes Did you have a drink contain ing alcohol in the past year? Yes How often did you have a dri nk containing alcohol in the past year? Monthly or less (1 point) How many drinks did you have on a typical day when you were drinking in the past year? 1 or 2 drinks (0 point) How often did you have 6 or more drinks on one occasion in the past year? Never (0 point) Points 1 Interpretation Negative Problems Problem Type SNOMED Code ICD Code Onset Dates Problem Status W/U Status Risk Notes Problem 69353551 Kidney stone (N20.0) Active confirmed Problem 9459594 Prediabetes (R73.09) Active confirmed Problem 195669503 Pure hypercholesterolemia (E78.00) Active confirmed Problem 54747820 Hydronephrosis w ith urinary obstruction due to renal calculus (N13.2) Active confirmed Problem CAD in [place] (I25.10) Active confirmed Vital Signs Blood pressure diastolic 66 mm Hg 04/07/2024 Height 71 in 04/07/2024 Blood pressure systolic 102 mm Hg 04/07/2024 Weight 194 lbs 04/07/2024 BMI 27.05 kg/m2 04/07/2024 Encounters Encounter Location Date Provider Diagnosis Brian Argueta MD [address] [place] [id number] 04/01/2024 Brian Argueta Prediabetes R73.09 Brian Argueta MD [address] [place] [address] Drive [address] [place] [id number] 09/29/2024 Brian Argueta Blood tests for rout ine general physical examination Z00.00 ; Prediabetes R73.09 and Pure hypercholesterolemia E78.00 Brian Argueta MD [address] [place] [address] Drive [address] [place] [id number] 10/01/2023 Brian Argueta Prediabetes R73.09 ; Encounter for general adult medical examination without abnormal findings Z00.00 ; Pure hypercholesterolemia E78.00 and CAD in [place] artery I25.10 Brian Argueta MD [address] [place] [id number] 04/07/2024 Brian Argueta Coronary artery dise ase involving [place] coronary artery of [place] heart without angina pectoris I25.10 ; CAD in [place] artery I25.10 ; Pure hypercholesterolemia E78.00 and Elevated LFTs R79.89 Brian Argueta MD [address] [place], [place] [id number] 09/29/2024 Brian Argueta Pure hypercholestero lemia E78.00 Assessments Encounter Date Diagnosis (ICD Code) Assessment Notes Treatment Notes Treatment Clinical Notes Section Notes 04/01/2024 Prediabetes (ICD-10 - R73.09) 09/29/[address] tests [address] ine general physical examination (ICD-10 - Z00.00) 10/01/2023 Prediabetes (ICD-10 - R73.09) still doing well 10/01/2023 Encounter for genera l adult medical examination without abnormal findings (ICD-10 - Z00.00) Labs reviewed and discussed with patient 04/07/2024 Coronary artery dise ase involving [place] coronary artery of [place] heart without angina pectoris (ICD-10 - I25.10) not having any problems 04/07/2024 CAD in [place] artery (ICD-10 - I25.10) not having any problems 09/29/2024 Pure hypercholesterolemia (ICD-10 - E78.00) 09/29/2024 Prediabetes (ICD-10 - R73.09) 10/01/2023 Pure hypercholesterolemia (ICD-10 - E78.00) well controlled onmeds 04/07/2024 Pure hypercholesterolemia (ICD-10 - E78.00) doing well , will continue current regiment 09/29/2024 Pure hypercholesterolemia (ICD-10 - E78.00) 10/01/2023 CAD in [place] artery (ICD-10 - I25.10) having no symptoms 04/07/2024 Elevated LFTs (ICD-1 0 - R79.89) is secondary to the statins. will contnue to monitor Plan Of Treatment Pending Test Test Name Order Date Electrocardiogram (EKG) 12/03/2010 Electrocardiogram (EKG) 03/15/2015 Electrocardiogram (EKG) 05/06/2018 US RENAL BILATERAL 09/13/2018 Complete Blood Count Auto Diff 5 Comprehensive [place]. Panel Fast Lipid Panel 09/29/2024 PSA,Total (Free>4and<10) 09/29/2024 Microalbumin, Random 09/29/2024 Hemoglobin A1c 09/29/2024 UA ClnCatch+Micro w/rflx Cult 09/29/2024 Liver Panel 04/01/2024 Lipid Panel 04/01/2024 Next Appt Details Provider Name:Brian Gallardo ier, 10/06/2024 08:30:00 AM, [address] [place] [address], [address], [place], [place], [phone], Insurance Providers Payer Name Payer Address Payer Phone Subscriber Number Group Number Insured Name Patient Relationship to Insured Coverage Start Date Coverage End Date [facility] [address] [place], [place] [id number] [phone] [id number] Spencer Vargas Self - patient is the insured Medical (General) History Medical History History ICD Code Colonoscopy 11/11/16 w/Dr. Gottlieb - repeat 10 years
--- OUTSIDE RECORDS SUMMARY | 2024-09-29 12:07 | XMS_ITS | Clinical Summary ---
Author Organization Formerly [facility] Address [address] [place] [address] Care Team Providers Care Senior Rd Engineer Name Role Phone Unavailable Primary Care Provider Unavailabl e Social History Tobacco Use Types Packs/Day Years Used Date Smoking Tobacco: Never Assessed Sex and Gender Information Value Date Recorded Sex Assigned at Not on file Legal Sex Male 6:58 PM EST Gender Identity Not on file Sexual Orientation Not on file Plan of Treatment Health Maintenance Due Date Last Done Comments Hepatitis C Virus Screening 1965 HIV Screening 1977 DTaP/Tdap/Td Vaccines (1 - Tdap) 07/19/1983 Pneumococcal Vaccines 50+ (1 of 1 - PCV) 2014 Zoster (Shingles) Vaccine (1 of 2) 2014 COVID-19 Vaccine ( - 2023-2 5 season) 2023 RSV Vaccine 60 years and old er and Patients (1 - 1-dose 75+ series) 07/19/2039 Hepatitis B Vaccines Aged Out No long er eligible based on patient's age to complete this topic
--- OUTSIDE RECORDS SUMMARY | 2024-09-29 12:07 | XMS_ITS | Clinical Summary ---
Author Organization [facility] Address [address] [place] [address] Care Team Providers Care Wide Area Network Engineer Name Role Phone Unavailable Primary Care [...] DTaP,Tdap,and Td Vaccines (1 - Tdap) 07/19/1983 Pneumococcal Vaccine: 50+ Ye ars (1 of 1 - PCV) 2014 Zoster Vaccines (1 of 2) 2014 Cholesterol Screening (Lipid Panel) 09/18/2023 Colorectal Cancer Screening: Colonoscopy 09/18/2023 HIV Screening 09/18/2023 Hepatitis C Screening 09/18/2023 Social Influencers of Health Screening 09/18/2023 COVID-19 Vaccine (1 - 2023-2 5 season) 2023 Depression Screening 02/17/2024 Influenza Vaccine (#1) 2024 RSV Immunization Adult Patie nts (1 - 1-dose 75+ series) 07/19/2039 HIB Vaccines Aged Out No longer eligi ble based on patient's age to complete this topic HPV Vaccines Aged Out No longer eligi ble based on patient's age to complete this topic Hepatitis A Vaccines Aged Out No long er eligible based on patient's age to complete this topic Hepatitis B Vaccines Aged Out No long [...] patient's age to complete this topic Meningococcal B Vaccine Aged Out No l onger eligible based on patient's age to complete this topic RSV Immunization Patients Un mikala 20 months Aged Out No longer eligible b ased on patient's age to complete this topic Varicella Vaccines Aged Out No longer eligible based on patient's age to complete this topic
[2024-09-29 12:12] LABS: Microalbum/Creatinine Ratio Ur 5.7 ug/mg cr (<30)
== END 2024-09-29 10:55 | disposition home or self-care (01) ==
LOC: HO.LNP 10:54
PROVIDERS: Visit Provider Internal Medicine
DX: Z00.00 Encounter for general adult medical examination without abnormal findings (principal); Z12.5 Encounter for screening for malignant neoplasm of prostate; E78.00 Pure hypercholesterolemia, unspecified; R73.09 Other abnormal glucose
CPT/HCPCS: 80053; 80061; 81001; 82043; 82570; 83036; 84153; 85025